=== PATIENT | male | born 1965 | race Caucasian/White ===

== ENCOUNTER 2020-07-01 11:31 | Outpatient (REF) | payer OTHER, SELFPAY | END 2020-07-01 11:32 | disposition home or self-care (01) | LOC: HO.LAB 11:31 | PROVIDERS: Visit Provider Internal Medicine | DX: Z20.822 Contact with and (suspected) exposure to COVID-19 (principal) | CPT/HCPCS: 36415; C9803; U0003; U0005 ==

== ENCOUNTER 2021-12-28 11:47 | Emergency (ER) | payer OTHER, SELFPAY | END 2021-12-28 13:57 | disposition left against medical advice (07) | PROVIDERS: Emergency Provider Emergency Medicine; PCP Internal Medicine Geriatric Medicine | DX: R06.00 Dyspnea, unspecified (principal) ==

== ENCOUNTER 2024-11-27 19:39 | Emergency (ER) | payer OTHER, SELFPAY ==
--- NOTE | ~2024-11-27 | XR_ITS ---
CLINICAL HISTORY: pain 3 view right elbow Comparison: None provided Findings: No acute fractures or dislocations. No significant arthritic change or erosions. No joint effusion. No radiopaque foreign body. IMPRESSION: 1. No acute findings. This document has been electronically signed by: Main Alvarez MD on 11/27/2024 21:20:26
--- NOTE | ~2024-11-27 | XR_ITS ---
CLINICAL HISTORY: pain s p fall 5 view, chest and right ribs Comparison: None provided Findings: Bones intact. No dislocations. The lungs are unremarkable. IMPRESSION: 1. No acute fractures. This document has been electronically signed by: Main Alvarez MD on 11/27/2024 21:23:20
--- NOTE | 2024-11-27 19:44 | ECG_ITS ---
Test Reason : chest pain Blood Pressure : */* mmHG Vent. Rate : 80 BPM Atrial Rate : 80 BPM P-R Int : 182 ms QRS Dur : 84 ms QT Int : 382 ms P-R-T Axes : 63 -1 52 degrees QTcB Int : 440 ms Sinus rhythm with Premature atrial complexes in a pattern of bigeminy Otherwise normal ECG When compared with ECG of 02-Jul-2019 14:49, Premature atrial complexes are now Present Nonspecific T wave abnormality no longer evident in Lateral leads Referred By: Generic ED Physician Electronically Signed By: Stevo Waddell
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
[2024-11-27 19:58] VITALS: BP 129/63; PULSE 82; RESP 20; TEMP 36.6; O2SAT 93; BMI 28.1
[2024-11-27 22:47] VITALS: BP 147/83; PULSE 60; RESP 16; TEMP 37.4; O2SAT 94
--- NOTE | 2024-11-27 23:52 | HO.SKINPHOTO ---
Location: Right back side Category: Stage: Length: Width: Depth: cm Location: Category: Stage: Length: Width: Depth: cm Location: Category: Stage: Length: Width: Depth: cm Location: Category: Stage: Length: Width: Depth: cm Location: Category: Stage: Length: Width: Depth: cm Location: Category: Stage: Length: Width: Depth: cm
[2024-11-28 00:15] VITALS: BP 147/83; PULSE 60; RESP 16; TEMP 37.4; O2SAT 94
== END 2024-11-28 00:16 | disposition home or self-care (01) ==
PROVIDERS: Emergency Provider Emergency Medicine; PCP Internal Medicine Geriatric Medicine
DX: S20.211A Contusion of right front wall of thorax, initial encounter (principal); R07.89 Other chest pain; R94.31 Abnormal electrocardiogram [ECG] [EKG]; M79.10 Myalgia, unspecified site; M25.521 Pain in right elbow; V19.9XXA Pedal cyclist (driver) (passenger) injured in unspecified traffic accident, initial encounter; Y93.9 Activity, unspecified; Y92.410 Unspecified street and highway as the place of occurrence of the external cause; Y99.8 Other external cause status
CPT/HCPCS: 71101; 73080; 93005; 96372; 99284; 99285; J1885

== ENCOUNTER → 2024-11-27 19:44 | Outpatient (BNV) | payer OTHER, SELFPAY | PROVIDERS: Emergency Provider Emergency Medicine; PCP Internal Medicine Geriatric Medicine; Visit Provider Internal Medicine Cardiovascular Disease | DX: I49.1 Atrial premature depolarization (principal) | CPT/HCPCS: 93010 ==

== ENCOUNTER → 2024-11-27 19:58 | Outpatient (BNV) | payer OTHER, SELFPAY | PROVIDERS: PCP Internal Medicine Geriatric Medicine; Visit Provider Student in an Organized Health Care Education/Training Program | DX: R07.89 Other chest pain (principal); M25.521 Pain in right elbow | CPT/HCPCS: 71101; 73080 ==